=== PATIENT | male | born 1960 | race Caucasian/White ===

== ENCOUNTER → 2021-11-13 10:46 | Outpatient (CLI) | payer BC, SELFPAY ==
--- NOTE | ~2021-11-13 | XR_ITS ---
XR abdomen/kub 1V 11/13/2021 11:13 INDICATION: Abdominal pain TECHNIQUE: KUB COMPARISON: None FINDINGS: Bowel gas pattern is normal. Moderate colonic fecal loading. There is no evidence of free a ir, mass, organomegaly, ascites or obstruction. No abnormal calculi are seen. There are pelvic phleb oliths. The bones appear intact. IMPRESSION: 1: No acute abdominal abnormality identified. Reviewed, dictated and finalized at location A.
== END ==
PROVIDERS: PCP Family Medicine; Visit Provider Family Medicine
DX: R10.9 Unspecified abdominal pain (principal)
CPT/HCPCS: 74018

== ENCOUNTER → 2022-04-05 09:16 | Outpatient (CLI) | payer BC, SELFPAY ==
--- NOTE | ~2022-04-05 | XR_ITS ---
EXAMINATION: XR ribs BI 3V w CXR 2V INDICATION: Bilateral rib pain TECHNIQUE: Frontal and lateral views of the chest and 3 views of the bilateral ribs were obtained. COMPARISON: None. FINDINGS: The lungs are free opacities. No pleural effusion or pneumothorax. The cardiomediastinal si lhouette is normal. No displaced rib fracture is identified. There is mild thoracic spondylosis. IMPRESSION: 1. No acute cardiopulmonary abnormality or evidence of displaced rib fracture. Reviewed, dictated and finalized at location A.
--- NOTE | ~2022-04-05 | XR_ITS ---
EXAMINATION: XR humerus RT INDICATION: Right arm pain TECHNIQUE: Two views of the right humerus are obtained on four radiographs. COMPARISON: None available FINDINGS: Bone alignment is normal. There is no fracture. 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 The soft tissues are unremarkable. IMPRESSION: 1. No acute osseous abnormality. Reviewed, dictated and finalized at location A.
--- NOTE | ~2022-04-05 | XR_ITS ---
EXAMINATION:[id number]_CR DATE: 04/05/2022 09:48 INDICATION: Neck pain TECHNIQUE: AP, lateral, lateral swimmers and odontoid views of the cervical spine are provided. COMPARISON: None FINDINGS: Alignment is normal. The odontoid is intact. No fracture is identified. The vertebral body heights are normal. There is moderate loss of intervertebral disc space height at C5-6 and C6-7. Smal l degenerative osteophytes project from the anterior endplates of multiple vertebral bodies. There is moderate facet and uncovertebral joint osteoarthritis of the lower cervical spine. Prevertebral soft tissues are normal. IMPRESSION: 1. Mild cervical spondylosis without acute findings. Reviewed, dictated and finalized at location A.
--- NOTE | ~2022-04-05 | XR_ITS ---
EXAMINATION: XR shoulder RT min 2V INDICATION: Right shoulder pain TECHNIQUE: Four views of the right shoulder are submitted. COMPARISON: None FINDINGS: Normal alignment. No fracture. 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 Soft tissues are unremarkable. IMPRESSION: 1. No acute osseous abnormality. Reviewed, dictated and finalized at location A.
== END ==
PROVIDERS: PCP Family Medicine; Visit Provider Physician Assistant
DX: S19.9XXA Unspecified injury of neck, initial encounter (principal); S29.9XXA Unspecified injury of thorax, initial encounter; M47.812 Spondylosis without myelopathy or radiculopathy, cervical region; S49.91XA Unspecified injury of right shoulder and upper arm, initial encounter
CPT/HCPCS: 71046; 71110; 72040; 73030; 73060